=== PATIENT | female | born 1985 | race Caucasian/White ===

== ENCOUNTER 2016-07-09 11:33 | Emergency (ER) | payer BC, MEDICAID ==
[~2016-07-09] VITALS: Ht 160 cm; Wt 78.2 kg
[~2016-07-09 11:33] MED LIST: IBUP800T PO; NONE PER PT; OXYC-302 PO
[2016-07-09] MEDS ORDERED: ONDANSETRON 2MG/ML, 2ML ONE (13:16)
[2016-07-09] MEDS ORDERED: HYDROmorphone 1 MG/ML, 1ML ONE ×2 (13:16→15:32)
[2016-07-09] MEDS ORDERED: ONDANSETRON 2MG/ML, 2ML IVPush ONE (13:30)
[2016-07-09] MEDS ORDERED: SODIUM CHLORIDE FLUSH 10ML SYR IVF ONE (13:30)
[2016-07-09] MEDS ORDERED: SODIUM CHLORIDE 0.9% 1,000ML IVBOLUS ONE (13:30)
[2016-07-09] MEDS: HYDROmorphone 1 MG/ML, 1ML IVPush PRN ×2 (13:37→15:35)
[2016-07-09] MEDS ORDERED: ACET325C PO (13:55)
[2016-07-09 13:57] LABS: HEMOGLOBIN 13.6 g/dL (11.7-16.4)
[2016-07-09 14:09] LABS: BLOOD UREA NITROGEN 11 mg/dL (7-18)
[2016-07-09 14:14] LABS: ASPARTATE AMINO TRANSFERASE 20 U/L (15-37)
[2016-07-09] MEDS ORDERED: OMNIPAQUE 350 MG/ML, 100ML BOTTLE ONE (15:12)
[2016-07-09 16:11] VITALS: BP 102/60
== END 2016-07-09 16:44 | disposition home or self-care (01) ==
LOC: ED 14:32
DX: A08.4 Viral intestinal infection, unspecified (principal); R10.84 Generalized abdominal pain
CPT/HCPCS: 36415; 74177; 80053; 81003; 83690; 84703; 85025; 96361; 96374; 96375; 96376; 99285; J1170; J2405; J7030; Q9967